=== PATIENT | male | born 2000 | race Caucasian/White ===

== ENCOUNTER 2021-11-21 23:00 | Emergency (ER) | payer OTHER, SELFPAY ==
--- OUTSIDE RECORDS SUMMARY | 2021-11-21 23:02 | XMS REPORT | Continuity of Care Document ---
:2000 Author Organization [facility] t Address [address] [place] [address] Care Team Providers Name Role Phone Pcp, Does Not Have A Primary Care Physician Ritesh PIANO STRINGER Attending Clinician RITESH Attending Clinician Unavailable Doctor Unassigned, Name Attending Clinician Unavailable Payers Payer Name Policy Type Policy Number Effective Date Expiration Date S mode [id number] 2020 Uninsured Testing 00:00:00 00:00:00 & Treat [place] [facility] [id number] 2016 HEALTH 00:00:00 Problems Condition Condition Condition Status Onset Resolution Last Treating Co mments Source Name Details Category Date Date Treatment Clinician Date Ichthyosis Ichthyosis Disease Active U nivers vulgaris vulgaris 2-22 ity of 00:00: [place] 00 [facility] 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 2-22 ity of 00:00: [place] 00 [facility] Migraine Migraine Disease Active Unive rs without without 2-22 ity of aura and aura and 00:00: [place] without without 00 Medical status status Branch migrainosu migrainosu s, not s, not intractabl intractabl e e Allergies, Adverse Reactions, Alerts Allergy Allergy Status Severity Reaction(s) Onset Inactive Treating Comm ents Source Name Type Date Date Clinician NO KNOWN Drug Active Univers ALLERGIE Class ity of S [facility] Social History Social Habit Start Date Stop Date Quantity Comments Source Exposure to Not sure [facility] SARS-CoV-2 (event) Medica l Branch Tobacco use and 2015-07-21 2015-07-21 Never used [facility] exposure 00:00:00 00:00:00 [facility] Branch Sex Assigned At [birth year] [facility] 00:00:00 00:00:00 [facility] Branch Smoking Status Start Date Stop Date Source Never smoker [facility] Medications Ordered Filled Start Stop Current Ordering Indication Dosage Frequency Signature Comments Components Source Medication Medication Date Date Medication? Clinician (SIG) Name Name ibuprofen No [id number] 600mg Un ana (IBU) 09-05 ity of tablet 600 20:15: 20:01 [place] mg 00 :00 [facility] Branch ibuprofen 2021- No [id number] 600mg 600 mg, Univers (IBU) 09-05 Oral, ity of tablet 600 20:15: 20:01 ONCE, 1 Abilio as mg 00 :00 dose, On Medical Mon Branch 09/05/21 at 1515, Routine IBUPROFEN No Take by Uni vers (MOTRIN 09-05 mouth. ity of ORAL) 15:00: 00:00 [place] 31 :00 [facility] Branch IBUPROFEN 2018-0 Yes Take by Univ ers (MOTRIN 06-29 mouth. ity of ORAL) 08:54: [place] 58 [facility] Immunizations Ordered Filled Immunization Date Status Comments Sourc e Immunization Name Name DTAP 2003-08-12 Completed University of 00:00:00 [facility] DTAP 2003-08-12 Completed University of 00:00:00 [facility] MMR 2003-08-07 Completed University of 00:00:00 [facility] Polio (IPV/OPV) 2003-08-07 Completed Universit y of 00:00:00 [facility] MMR 2003-08-07 Completed University of 00:00:00 [facility] Polio (IPV/OPV) 2003-08-07 Completed Universit y of 00:00:00 [facility] Vital Signs Vital Name Observation Time Observation Value Comments Source Systolic blood 2021-09-05 19:51:00 135 mm[Hg] Univer sity of pressure [facility] Diastolic blood 2021-09-05 19:51:00 82 mm[Hg] Unive rsity of pressure [facility] Heart rate 2021-09-05 19:51:00 82 /min Universi ty [place] [facility] Body temperature 2021-09-05 19:51:00 36.72 Lily [facility] [place] Respiratory rate 2021-09-05 19:51:00 16 /min [facility] [place] Body height 2021-09-05 19:51:00 170.2 cm Universi ty [facility] Body weight 2021-09-05 19:51:00 73.483 kg Universi ty [place] [facility] BMI 2021-09-05 19:51:00 25.37 kg/m2 Universi ty [place] [facility] Oxygen saturation in 2021-09-05 19:51:00 98 /min [facility] Arterial blood by [facility] Pulse oximetry Branch Procedures Procedure Date / Time Performed Performing Clinician [facility] e CONSENT/REFUSAL FOR 2021-09-05 19:38:13 Doctor Carmen, No Un [facility] DIAGNOSIS AND Name [facility] TREATMENT Encounters Start End Encounter Admission Attending Care Care Encounter Source Date/Time Date/Time Type Type Clinicians Facility Department ID 2021-09-03 Outpatient [facility] [id number] [place] 06:36:23 [id number] [facility] 2021-09-05 2021-09-05 Urgent [facility] [id number] Univers 14:40:00 15:06:57 Care [facility] [id number] i ty of [place] [id number] Abilio as SAM?BLEA [phone] [place] [facility] [address] MEDICAL OFFICE BUILDING 2021-09-05 2021-09-05 Outpatient R RITESH [facility] [id number] Univers 14:40:00 15:06:57 OSMIN figueroay o f [facility] 2021-09-05 2021-09-05 Outpatient R [facility] [id number] Univers 14:40:00 14:40:00 [id number] ity of [facility] 2021-09-05 2021-09-05 Orders Doctor RICE [id number] Univers 00:00:00 00:00:00 Only Unassigned, FERDINAND [id number] ity of [place] [facility] [id number] Abilio as [phone] [facility] 009 Branch Results This patient has no known results.
[2021-11-22] MEDS ORDERED: METOCLOPRAMIDE 10 MG/2mL INJ ONE (00:20)
[2021-11-22] MEDS ORDERED: NA CHLORIDE 0.9% 50 ML ONE (00:21)
[2021-11-22] MEDS ORDERED: NA CHLORIDE 0.9% 1,000 ML ONE (00:21)
[2021-11-22] MEDS ORDERED: KETOROLAC 30 MG/ML INJ ONE (00:21)
[2021-11-22] MEDS ORDERED: DIPHENHYDRAMINE 50 MG/ML VIAL ONE (00:21)
--- NOTE | 2021-11-22 02:37 | ER ---
Nurse's Notes [facility] Name: Zane Miller Age: 21 yrs Sex: Male : 2000 Arrival Date: 11/21/2021 Time: 23:03 Bed 15 Private MD: Diagnosis: Migraine without aura, not intractable Presentation: 11/21 23:36 Chief complaint: Patient states: he has a severe migraine with photophobia and bb vomiting. Coronavirus screen: At this time, the client does not indicate any symptoms associated with coronavirus-19. Ebola Screen: No symptoms or risks identified at this time. Initial Sepsis Screen: Does the patient meet any 2 criteria? No. Patient's initial sepsis screen is negative. Does the patient have a suspected source of infection? No. Patient's initial sepsis screen is negative. Risk Assessment: Do you want to hurt yourself or someone else? Patient reports no desire to harm self or others. Onset of symptoms was November 21, 2021. 23:36 Method Of Arrival: Ambulatory bb 23:36 Acuity: OBED 3 bb Triage Assessment: 23:37 Headache History: The patient has had previous headaches. General: Appears in no bb apparent distress. uncomfortable, Behavior is cooperative, anxious. Pain: Complains of pain in headache Pain currently is 10 out of 10 on a pain scale. Pain began suddenly, Also complains of photophobia, vomiting. Neuro: Level of Consciousness is awake, alert, obeys commands, Oriented to person, place, time, situation. Cardiovascular: Capillary refill < 3 seconds Patient's skin is warm and dry. Respiratory: Respiratory effort is even, unlabored. GI: Pt is actively vomiting. Derm: Skin is pink, warm \T\ dry. Musculoskeletal: Circulation, motion, and sensation intact. Historical: - Allergies: 23:37 No Known Allergies; bb - Home Meds: 23:37 None [Active]; bb - PMHx: 23:37 Cerebral Palsy; HEARING IMPAIRED; Hemiplegic migraines; bb - PSHx: 23:37 hypospadia; bb - Immunization history:: Moderna x 2. - Social history:: Smoking status: Patient denies any tobacco usage or history of. Screenin:45 Abuse screen: Denies threats or abuse. Nutritional screening: No deficits noted. bb Tuberculosis screening: No symptoms or risk factors identified. Fall Risk None identified. Assessment: 23:45 Reassessment: No changes from previously documented assessment. Patient is alert, bb oriented x 3, equal unlabored respirations, skin warm/dry/pink. see triage assessment. 11/22 01:00 Reassessment: No changes from previously documented assessment. Patient is alert, vc1 oriented x 3, equal unlabored respirations, skin warm/dry/pink. Patient states symptoms have improved. 02:00 Reassessment: Patient and/or family updated on plan of care and expected duration. Pain vc1 level reassessed. Patient is alert, oriented x 3, equal unlabored respirations, skin warm/dry/pink. Patient states feeling better. Patient states symptoms have improved. Vital Signs: 11/21 23:36 BP 122 / 70; Pulse 72; Resp 16 S; Temp 98.3(O); Pulse Ox 99% on R/A; Weight 71.67 kg bb (R); Height 5 ft. 6 in. (167.64 cm) (R); Pain 10/10; 11/22 02:00 BP 120 / 68; Pulse 70; Resp 16; Pulse Ox 100% ; Pain 0/10; vc1 11/21 23:36 Body Mass Index 25.50 (71.67 kg, 167.64 cm) Markle Coma Score: 00:55 Eye Response: spontaneous(4). Verbal Response: oriented(5). Motor Response: obeys sarah commands(6). Total: 15. ED Course: 11/21 23:03 Patient arrived in ED. jj6 23:37 Triage completed. bb 23:37 Arm band placed on Patient placed in an exam room, on a stretcher, on pulse oximetry. bb Family accompanied patient. 23:40 Christos King MD is Attending Physician. sarah 23:45 Patient has correct armband on for positive identification. Bed in low position. Call bb light in reach. Side rails up X 1. Adult w/ patient. 11/22 00:31 Inserted saline lock: 20 gauge in left antecubital area, using aseptic technique. Blood vc1 collected. 00:56 CT Head Brain wo Cont In Process Unspecified. EDKS 02:37 Bobby Smalls MD is Referral Physician. sarah 02:40 No provider procedures requiring assistance completed. IV discontinued, intact, vc1 bleeding controlled, No redness/swelling at site. Pressure dressing applied. 02:43 Dania Pimentel, RN is Primary Nurse. vc1 Administered Medications: 00:30 Drug: NS 0.9% 1000 ml Route: IV; Rate: 1 bolus; Site: left antecubital; vc1 01:30 Follow up: IV Status: Completed infusion; IV Intake: 1000ml vc1 00:30 Drug: Benadryl (diphenhydrAMINE) 50 mg Route: IVP; Site: left antecubital; vc1 01:30 Follow up: Response: No adverse reaction; Pain is decreased vc1 00:30 Drug: Reglan (metoCLOPramide) 10 mg Route: IVP; Site: left antecubital; vc1 01:30 Follow up: Response: No adverse reaction; Pain is decreased vc1 00:30 Drug: Ketorolac 30 mg Route: IVP; Site: left antecubital; vc1 01:30 Follow up: Response: No adverse reaction; Pain is decreased vc1 Medication: 02:40 VIS not applicable for this client. vc1 Intake: 01:30 IV: 1000ml; Total: 1000ml. vc1 Outcome: 02:37 Discharge ordered by MD. smith 02:40 Discharged to home ambulatory, with significant other. vc1 02:40 Condition: improved 02:40 Discharge instructions given to patient, Instructed on discharge instructions, follow up and referral plans. medication usage, Demonstrated understanding of instructions, follow-up care, medications, Prescriptions given X 2. 02:43 Patient left the ED. vc1 Signatures: Dispatcher [employer] EDKS Christos King MD MD cha Ballard, Brenda, Ida Dewey RN jj6 Dania Pimentel RN RN vc1
--- NOTE | 2021-11-22 02:37 | EDPHYS ---
Physician Documentation [facility] Name: Zane Miller Age: 21 yrs Sex: Male : 2000 Arrival Date: 11/21/2021 Time: 23:03 Bed 15 Private MD: ED Physician Christos King HPI: 11/22 00:52 This 21 yrs old Male presents to ER via Ambulatory with complaints of Headache.sarah Historical: - Allergies: 11/21 23:37 No Known Allergies; bb - Home Meds: 23:37 None [Active]; bb - PMHx: 23:37 Cerebral Palsy; HEARING IMPAIRED; Hemiplegic migraines; bb - PSHx: 23:37 hypospadia; bb - Immunization history:: Moderna x 2. - Social history:: Smoking status: Patient denies any tobacco usage or history of. ROS: 11/22 00:54 Constitutional: Negative for fever, chills, and weight loss, Eyes: Negative for injury, sarah pain, redness, and discharge, ENT: Negative for injury, pain, and discharge, Neck: Negative for injury, pain, and swelling, Cardiovascular: Negative for chest pain, palpitations, and edema, Respiratory: Negative for shortness of breath, cough, wheezing, and pleuritic chest pain, Abdomen/GI: Negative for abdominal pain, nausea, vomiting, diarrhea, and constipation, Back: Negative for injury and pain, : Negative for injury, bleeding, discharge, and swelling, MS/Extremity: Negative for injury and deformity, Skin: Negative for injury, rash, and discoloration, Psych: Negative for depression, anxiety, suicide ideation, homicidal ideation, and hallucinations, Allergy/Immunology: Negative for hives, rash, and allergies, Endocrine: Negative for neck swelling, polydipsia, polyuria, polyphagia, and marked weight changes, Hematologic/Lymphatic: Negative for swollen nodes, abnormal bleeding, and unusual bruising. Neuro: Positive for headache. Exam: 00:54 Constitutional: This is a well developed, well nourished patient who is awake, alert, sarah and in no acute distress. Head/Face: Normocephalic, atraumatic. Eyes: Pupils equal round and reactive to light, extra-ocular motions intact. Lids and lashes normal. Conjunctiva and sclera are non-icteric and not injected. Cornea within normal limits. Periorbital areas with no swelling, redness, or edema. ENT: Nares patent. No nasal discharge, no septal abnormalities noted. Tympanic membranes are normal and external auditory canals are clear. Oropharynx with no redness, swelling, or masses, exudates, or evidence of obstruction, uvula midline. Mucous membranes moist. Neck: Trachea midline, no thyromegaly or masses palpated, and no cervical lymphadenopathy. Supple, full range of motion without nuchal rigidity, or vertebral point tenderness. No Meningismus. Chest/axilla: Normal chest wall appearance and motion. Nontender with no deformity. No lesions are appreciated. Cardiovascular: Regular rate and rhythm with a normal S1 and S2. No gallops, murmurs, or rubs. Normal PMI, no JVD. No pulse deficits. Respiratory: Lungs have equal breath sounds bilaterally, clear to auscultation and percussion. No rales, rhonchi or wheezes noted. No increased work of breathing, no retractions or nasal flaring. Abdomen/GI: Soft, non-tender, with normal bowel sounds. No distension or tympany. No guarding or rebound. No evidence of tenderness throughout. Back: No spinal tenderness. No costovertebral tenderness. Full range of motion. Skin: Warm, dry with normal turgor. Normal color with no rashes, no lesions, and no evidence of cellulitis. MS/ Extremity: Pulses equal, no cyanosis. Neurovascular intact. Full, normal range of motion. Neuro: Awake and alert, GCS 15, oriented to person, place, time, and situation. Cranial nerves II-XII grossly intact. Motor strength 5/5 in all extremities. Sensory grossly intact. Cerebellar exam normal. Normal gait. Psych: Awake, alert, with orientation to person, place and time. Behavior, mood, and affect are within normal limits. 00:54 Neck: ROM/movement: is normal, is supple, without pain, no range of motions limitations, no meningismus, no nuchal rigidity, negative Brudzinski's sign, negative Kernig's sign, no acute changes, pain, is not appreciated, limited range of motion, is not appreciated, Meningeal signs: are not present, nuchal rigidity, is not appreciated. Vital Signs: 11/21 23:36 BP 122 / 70; Pulse 72; Resp 16 S; Temp 98.3(O); Pulse Ox 99% on R/A; Weight 71.67 kg bb (R); Height 5 ft. 6 in. (167.64 cm) (R); Pain 10/10; 11/22 02:00 BP 120 / 68; Pulse 70; Resp 16; Pulse Ox 100% ; Pain 0/10; vc1 11/21 23:36 Body Mass Index 25.50 (71.67 kg, 167.64 cm) bb Rodrick Coma Score: 00:55 Eye Response: spontaneous(4). Verbal Response: oriented(5). Motor Response: obeys [facility] commands(6). Total: 15. MDM: 11/21 23:40 Patient medically screened. [facility] 11/22 00:55 Differential diagnosis: cluster headache, hypertensive headache, migraine, tension sarah headache, trigeminal neuralgia, vasomotor headache. Data reviewed: vital signs, nurses notes, lab test result(s), radiologic studies, CT scan. Data interpreted: campus monitor: rate is 72 beats/min, rhythm is regular, Pulse oximetry: on room air is 99 %. Counseling: I had a detailed discussion with the patient and/or guardian regarding: the historical points, exam findings, and any diagnostic results supporting the discharge/admit diagnosis, lab results, radiology results, the need for outpatient follow up, for definitive care, a family practitioner, a neurologist. 11/21 23:43 Order name: CT Head Brain wo Cont [facility] 11/21 23:43 Order name: Oxygen; Complete Time: 00:30 [facility] Administered Medications: 00:30 Drug: NS 0.9% 1000 ml Route: IV; Rate: 1 bolus; Site: left antecubital; vc1 01:30 Follow up: IV Status: Completed infusion; IV Intake: 1000ml vc1 00:30 Drug: Benadryl (diphenhydrAMINE) 50 mg Route: IVP; Site: left antecubital; vc1 01:30 Follow up: Response: No adverse reaction; Pain is decreased vc1 00:30 Drug: Reglan (metoCLOPramide) 10 mg Route: IVP; Site: left antecubital; vc1 01:30 Follow up: Response: No adverse reaction; Pain is decreased vc1 00:30 Drug: Ketorolac 30 mg Route: IVP; Site: left antecubital; vc1 01:30 Follow up: Response: No adverse reaction; Pain is decreased vc1 Disposition Summary: 11/22/21 02:37 Discharge Ordered Location: Home sarah Problem: new sarah Symptoms: have improved sarah Condition: Stable sarah Diagnosis - Migraine without aura, not intractable sarah Followup: sarah - With: Private Physician - When: 2 - 3 days - Reason: Recheck today's complaints, Continuance of care, Re-evaluation by your physician Followup: sarah - With: - When: 2 - 3 days - Reason: Recheck today's complaints, Re-evaluation by your physician Discharge Instructions: - Discharge Summary Sheet sarah - Migraine Headache sarah - Migraine Headache, [id number] sarah Forms: - Medication Reconciliation Form sarah - Thank You Letter sarah - Antibiotic Education sarah - Prescription Opioid Use sarah Prescriptions: - Zofran 4 mg Oral Tablet - take 1 tablet by ORAL route every 12 hours As needed; 20 tablet; Refills: 0, sarah Product Selection Permitted - Fioricet with Codeine [id number] mg Oral capsule - take 1 capsule by ORAL route every 4 hours as needed not to exceed 6 capsules sarah per 24hrs; 15 capsule; Refills: 0, Product Selection Permitted Signatures: Dispatcher [employer] Christos Chow MD MD cha Ballard, Brenda, RN RN Dania Marina RN RN vc1
[2021-11-22 03:01] VITALS: BP 122/70; TEMP 98.3; O2SAT 99
--- NOTE | 2021-11-22 14:36 | RAD REPORT ---
EXAM DESCRIPTION: CT Head/Brain Without Contrast CLINICAL HISTORY: Headache, classic migraine COMPARISON: CT Head/Brain Without Contrast 07/09/2017 images without report TECHNIQUE: Head/brain axial images acquired without contrast. Coronal and sagittal reformats created . Exam performed according to departmental dose-optimization program which includes automated exposur e control, adjustment of mA and/or kV according to patient size, and/or use of iterative reconstructi on technique. FINDINGS: No midline shift, mass effect, intracranial hemorrhage, or hydrocephalus. Few nonspecific round small bilateral cerebral centrum semiovale calcifications. Paranasal sinuses clear. Mastoid air cells clear. No skull fracture or significant skull lesion. IMPRESSION: No CT evidence of acute intracranial abnormality. Electronically signed by: Raad Holcomb MD 11/22/2021 1:28 AM CDT Due to temporary technical issues with the PACS/Fluency reporting system, reports are being signed by the in house radiologists without review as a courtesy to insure prompt reporting. The interpreting radiologist is fully responsible for the content of the report.
== END 2021-11-22 02:43 | disposition home or self-care (01) ==
LOC: ER 23:00
DX: G43.009 Migraine without aura, not intractable, without status migrainosus (principal); G80.9 Cerebral palsy, unspecified
CPT/HCPCS: 70450; 96361; 96374; 96375; 99284; J1200; J2765; J7030

== ENCOUNTER 2022-12-18 15:03 | Emergency (ER) | payer SELFPAY ==
--- OUTSIDE RECORDS SUMMARY | 2022-12-18 15:07 | XMS REPORT | Continuity of Care Document ---
:2000 Author Organization [facility] t Address [address] [facility] [address] [place] [address] Care Team Providers Name Role Phone PCP, PATIENT DOES NOT HAVE A Primary Care Physician UnavailAMI Sherman Attending Clinician Unavailable Ami Zarate PA-C Attending Clinician Unknown, Attending Attending Clinician Unavailable Sofie Pereyra Attending Clinician SOFIE AWAD Attending Clinician Unavailable Doctor Unassigned, [place] Attending Clinician Unavailable Payers Payer Name Policy Type Policy Number Effective Date Expiration Date James coello Covid19 Hrsa E [id number] 2020 2020 Uninsured Testing 00:00:00 00:00:00 & Treat [place] [facility] [id number] 2016 HEALTH 00:00:00 Problems Condition Condition Condition Status Onset Resolution Last Treating Co mments Source Name Details Category Date Date Treatment Clinician Date Ichthyosis Ichthyosis Disease Active U nivers vulgaris vulgaris 2-22 ity of 00:00: [place] 00 Medical Branch 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 2-22 ity of 00:00: [place] 00 Medical Branch Migraine Migraine Disease Active Unive rs without [...] Active Univers ALLERGIE Class ity of S [facility] Social History Social Habit Start Date Stop Date Quantity Comments Source History of Passive smoker University of tobacco use [facility] Exposure to 2022-04-05 2022-04-15 Not sure [facility] SARS-CoV-2 00:00:00 16:22:00 [place] [facility] (event) [place] Tobacco use and 2021-09-05 2021-09-05 Smokeless tobacco Un iversity of exposure 00:00:00 00:00:00 non-user [facility] Sex Assigned At [birth year] Universit y of 00:00:00 00:00:00 [facility] Smoking Status Start Date Stop Date Source Never smoked tobacco [facility] Medications Ordered Filled Start Stop Current Ordering Indication Dosage Frequency Signature Comments Components Source Medication Medication Date Date Medication? Clinician (SIG) Name Name ondansetron 2021-06 Yes [id number] 8mg Take 2 Univers 4 mg 1-05 tablets by ity of disintegrat 00:00: mouth [place] ing tablet 00 every 8 Medica l (eight) Branch hours as needed for Nausea and Vomiting (N/V). ibuprofen 2021- No [id number] 600mg Un ana (IBU) 09-05 ity of tablet 600 20:15: 20:01 [place] mg 00 :00 [facility] ibuprofen 2021- No [id number] 600mg 600 mg, Univers (IBU) 09-05 Oral, ity of tablet 600 20:15: 20:01 ONCE, 1 [place] as mg 00 :00 dose, On Medical Mon Branch 09/05/21 at 1515, Routine IBUPROFEN 2021- No Take by Univ ers (MOTRIN 09-05 mouth. ity of ORAL) 15:00: 00:00 [place] 31 :00 [facility] IBUPROFEN 2017-0 Yes Take by Unive rs (MOTRIN 06-29 mouth. ity of ORAL) 08:54: [place] 58 [facility] Immunizations Ordered Filled Immunization Date Status Comments Sourc e Immunization Name Name DTAP 2003-08-12 Completed University 00:00:00 [facility] DTAP 2003-08-12 Completed University 00:00:00 [facility] MMR 2003-08-07 Completed University of 00:00:00 [place] [facility] Polio (IPV/OPV) 2003-08-07 Completed Universit y of 00:00:00 [place] [facility] Branch MMR 2003-08-07 Completed University of 00:00:00 [place] [facility] Branch Polio (IPV/OPV) 2003-08-07 Completed Universit y of 00:00:00 [facility] Vital Signs Vital Name Observation Time Observation Value Comments Source Systolic blood 2022-04-15 21:23:00 115 mm[Hg] Univer sity of pressure [facility] Diastolic blood 2022-04-15 21:23:00 62 mm[Hg] Unive rsity of pressure [facility] Heart rate 2022-04-15 21:23:00 57 /min Universi ty of [facility] Body temperature 2022-04-15 21:23:00 37.28 Lily Univ ersity of [facility] Respiratory rate 2022-04-15 21:23:00 16 /min Univ ersity of [facility] Body height 2022-04-15 21:23:00 170.2 cm Universi ty of [facility] Body weight 2022-04-15 21:23:00 75.569 kg Universi ty of [facility] BMI 2022-04-15 21:23:00 26.09 kg/m2 Universi ty of [facility] Oxygen saturation in 2022-04-15 21:23:00 99 /min University of Arterial blood by [facility] Pulse oximetry Branch Systolic blood 2021-09-05 19:51:00 135 mm[Hg] Univer sity of pressure [facility] Diastolic blood 2021-09-05 19:51:00 82 mm[Hg] Unive rsity of pressure [facility] Heart rate 2021-09-05 19:51:00 82 /min Universi ty of [facility] Body temperature 2021-09-05 19:51:00 36.72 Lily Univ ersity of [facility] Respiratory rate 2021-09-05 19:51:00 16 /min Univ ersity of [facility] Body height 2021-09-05 19:51:00 170.2 cm Universi ty of [facility] Body weight 2021-09-05 19:51:00 73.483 kg Universi ty of [place] [facility] Branch BMI 2021-09-05 19:51:00 25.37 kg/m2 Universi ty of [facility] Oxygen saturation in 2021-09-05 19:51:00 98 /min University of Arterial blood by [facility] Pulse oximetry Branch Procedures Procedure Date / Time Performed Performing Clinician [facility] CONSENT/REFUSAL FOR 2021-09-05 19:38:13 Doctor Unassigned, [facility] Name Medical Branch TREATMENT Encounters Start End Encounter Admission Attending Care Care Encounter Source Date/Time Date/Time Type Type Clinicians Facility Department ID 2021-09-03 Outpatient [facility] [id number] [place] 06:36:23 [id number] [facility] 2022-04-15 2022-04-15 [facility] [id number] Univers 16:00:00 16:50:26 AMI smith [facility] 2022-04-15 2022-04-15 [facility] [id number] Univers 16:00:00 16:50:26 Care Unknown, [facility] [id number] ity of ABIQUIU [id number] Abilio as SAM?BLEA [id number] [address] MEDICAL OFFICE BUILDING 2021-09-05 2021-09-05 [facility] [id number] Univers 14:40:00 15:06:57 Care [facility] [id number] i ty of ABIQUIU [id number] Abilio as SAM?BLEA [id number] [address] MEDICAL OFFICE BUILDING 2021-09-05 2021-09-05 Outpatient R [facility] [id number] Univers 14:40:00 15:06:57 SOFIE ity o f [facility] 2021-09-05 2021-09-05 Orders Doctor RICE [id number] Univers 00:00:00 00:00:00 Only Unassigned, F[place] [id number] ity of [place] [facility] [id number] Abilio as [id number] [facility] 009 Branch Results This patient has no known results.
[2022-12-18] MEDS ORDERED: dexAMETHasone 10 MG/ML VIAL ONE (16:14)
[2022-12-18] MEDS ORDERED: NA CHLORIDE 0.9% 1,000 ML ONE (16:14)
[2022-12-18] MEDS ORDERED: METOCLOPRAMIDE 10 MG/2mL INJ ONE (16:14)
[2022-12-18] MEDS ORDERED: KETOROLAC 30 MG/ML INJ ONE (16:14)
--- NOTE | 2022-12-18 17:18 | ER ---
Nurse's Notes [facility] Name: Zane Miller Age: 22 yrs Sex: Male : 2000 Arrival Date: 12/18/2022 Time: 15:03 Bed 5 Private MD: Diagnosis: Migraine, unspecified, not intractable, without status migrainosus Presentation: 12/18 15:26 Chief complaint: Patient states: migraine onset today at 1400. Pt states that he has a cm10 history of migraines. Coronavirus screen: Vaccine status: Patient reports receiving the 2nd dose of the covid vaccine. Ebola Screen: Patient denies travel to an Ebola-affected area in the 21 days before illness onset. No symptoms or risks identified at this time. Initial Sepsis Screen: Does the patient meet any 2 criteria? No. Patient's initial sepsis screen is negative. Does the patient have a suspected source of infection? No. Patient's initial sepsis screen is negative. Risk Assessment: Do you want to hurt yourself or someone else? Patient reports no desire to harm self or others. Onset of symptoms was December 18, 2022. 15:26 Method Of Arrival: Ambulatory cm10 15:26 Acuity: OBED 3 cm10 Triage Assessment: 15:30 General: Appears in no apparent distress. comfortable, Behavior is calm, cooperative. cm10 Pain: Complains of pain in head Pain does not radiate. Pain currently is 5 out of 10 on a pain scale. Quality of pain is described as throbbing, Pain began 2 hours ago. Neuro: No deficits noted. Level of Consciousness is awake, alert, Oriented to person, place, time, situation, Reports headache frontal area. Respiratory: No deficits noted. Airway is patent Respiratory effort is even, unlabored, Respiratory pattern is regular, symmetrical. Historical: - Allergies: 15:30 No Known Drug Allergies; cm10 - PMHx: 15:30 Cerebral Palsy; HEARING IMPAIRED; Hemiplegic migraines; cm10 - PSHx: 15:30 hypospadia; cm10 - Immunization history:: Adult Immunizations up to date. - Social history:: Smoking status: Patient denies any tobacco usage or history of. Patient uses street drugs, marijuana. - Family history:: not pertinent. - Hospitalizations: : No recent hospitalization is reported. Screenin:14 [facility] ED Fall Risk Assessment (Adult) History of falling in the last 3 months, aa5 including since admission No falls in past 3 months (0 pts) Confusion or Disorientation No (0 pts) Intoxicated or Sedated No (0 pts) Impaired Gait No (0 pts) Mobility Assist Device Used No (0 pt) Altered Elimination No (0 pt) Score/Fall Risk Level 0 - 2 = Low Risk Oriented to surroundings, Maintained a safe environment, Educated pt \T\ family on fall prevention, incl call for assistance when getting out of bed. Abuse screen: Denies threats or abuse. Nutritional screening: No deficits noted. Tuberculosis screening: No symptoms or risk factors identified. Assessment: 16:00 General: Appears uncomfortable, Behavior is calm, cooperative. Pain: Complains of pain aa5 in left jehovah's witness and right jehovah's witness and forehead Pain currently is 5 out of 10 on a pain scale. Quality of pain is described as aching, Pain began 2 hours ago. Is continuous. Neuro: Level of Consciousness is awake, alert, obeys commands, Oriented to person, place, time, situation. Cardiovascular: Patient's skin is warm and dry. Respiratory: Airway is patent Respiratory effort is even, unlabored, Respiratory pattern is regular, symmetrical. GI: Patient currently denies nausea. : No signs and/or symptoms were reported regarding the genitourinary system. EENT: No signs and/or symptoms were reported regarding the EENT system. Derm: Skin is dry, Skin is normal, Skin temperature is warm. Musculoskeletal: Range of motion: intact in all extremities. 17:58 Neuro: Level of Consciousness is awake, alert, obeys commands, Oriented to person, aa5 place, time, situation. Respiratory: Airway is patent Respiratory effort is even, unlabored, Respiratory pattern is regular, symmetrical. Derm: Skin is dry, Skin is normal, Skin temperature is warm. Vital Signs: 15:26 BP 138 / 79; Pulse 75; Resp 16 S; Temp 98.1; Pulse Ox 100% on R/A; Weight 72.57 kg; cm10 Height 5 ft. 7 in. ; Pain 5/10; 17:50 BP 119 / 68; Pulse 72; Resp 17 S; Pulse Ox 100% on R/A; aa5 15:26 Body Mass Index 25.06 (72.57 kg, 170.18 cm) cm10 15:26 Pain Scale: Adult cm10 Rodrick Coma Score: 17:17 Eye Response: spontaneous(4). Motor Response: obeys commands(6). Verbal Response: rn oriented(5). Total: 15. ED Course: 15:05 Patient arrived in ED. rg4 15:13 Mc Boles MD is Attending Physician. rn 15:30 Triage completed. cm10 15:31 Arm band placed on Patient placed in waiting room. cm10 15:50 Lou Bay, RN is Primary Nurse. aa5 16:00 Patient has correct armband on for positive identification. Bed in low position. Call aa5 light in reach. Side rails up X 1. 16:10 Inserted saline lock: 20 gauge in left antecubital area, using aseptic technique. aa5 17:58 No provider procedures requiring assistance completed. IV discontinued, intact, aa5 bleeding controlled, No redness/swelling at site. Pressure dressing applied. Administered Medications: 16:13 Drug: Decadron - Dexamethasone IVP 10 mg Route: IVP; Site: left antecubital; aa5 16:20 Follow up: Response: No adverse reaction aa5 16:13 Drug: NS 0.9% IV 1000 ml Route: IV; Rate: 1000 ml; Site: left antecubital; aa5 17:58 Follow up: IV Status: Completed infusion; IV Intake: 1000ml aa5 16:13 Drug: metoCLOPramide IVP 10 mg Route: IVP; Site: left antecubital; aa5 16:20 Follow up: Response: No adverse reaction aa5 16:13 Drug: Ketorolac IVP 15 mg Route: IVP; Site: left antecubital; aa5 16:20 Follow up: Response: No adverse reaction aa5 Medication: 16:14 VIS not applicable for this client. aa5 Intake: 17:58 IV: 1000ml; Total: 1000ml. aa5 Outcome: 17:18 Discharge ordered by . rn 17:58 Discharged to home ambulatory, with family. aa5 17:58 Condition: improved 17:58 Discharge instructions given to patient, Instructed on discharge instructions, follow up and referral plans. Demonstrated understanding of instructions, follow-up care. 18:00 Patient left the ED. 1 Signatures: Mc Boles MD MD rn Calderon, Audri, VELIA RN aa5 Delores English rg4 Chance Montejo RN RN 1 Toyin Lehman, RN RN cm10
--- NOTE | 2022-12-18 17:19 | EDPHYS ---
Physician Documentation [facility] Name: Zane Miller Age: 22 yrs Sex: Male : 2000 Arrival Date: 12/18/2022 Time: 15:03 Bed 5 Private MD: ED Physician Mc Boles HPI: 12/18 16:02 This 22 yrs old Male presents to ER via Ambulatory with complaints of Migraine. rn 16:02 The patient complains of pain to the forehead, right jainism and left jainism. The rn patient describes the headache as aching. Onset: The symptoms/episode began/occurred today. Associated signs and symptoms: Pertinent negatives: altered mental status, fever, neck stiffness, rash, vision changes, vision loss, vomiting, weakness, vertigo. Severity of symptoms: At its worst the pain was moderate, in the emergency department the pain is unchanged. The symptoms are alleviated by nothing. the symptoms are aggravated by nothing. The patient has experienced similar episodes in the past. The patient has not recently seen a physician. Pt reports migraine headache, usually hemiplegic migraines, no weakness or numbness currently. No fever. NO neck stiffness. No trauma. No atypical features compared to previous migraines. Reports this is mild compared to previous.. Historical: - Allergies: 15:30 No Known Drug Allergies; cm10 - PMHx: 15:30 Cerebral Palsy; HEARING IMPAIRED; Hemiplegic migraines; cm10 - PSHx: 15:30 hypospadia; cm10 - Immunization history:: Adult Immunizations up to date. - Social history:: Smoking status: Patient denies any tobacco usage or history of. Patient uses street drugs, marijuana. - Family history:: not pertinent. - Hospitalizations: : No recent hospitalization is reported. ROS: 16:02 Constitutional: Negative for fever, chills, and weight loss, Eyes: Negative for injury, rn pain, redness, and discharge, Neck: Negative for injury, pain, and swelling, Cardiovascular: Negative for chest pain, palpitations, and edema, Respiratory: Negative for shortness of breath, cough, wheezing, and pleuritic chest pain, Abdomen/GI: Negative for abdominal pain, nausea, vomiting, diarrhea, and constipation, Back: Negative for injury and pain, MS/Extremity: Negative for injury and deformity, Skin: Negative for injury, rash, and discoloration, Neuro: Negative for weakness, numbness, tingling, and seizure. Exam: 16:02 Constitutional: This is a well developed, well nourished patient who is awake, alert, rn and in no acute distress. Neck: Trachea midline, no masses palpated, and no cervical lymphadenopathy. Supple, full range of motion without nuchal rigidity, or vertebral point tenderness. No Meningismus. Cardiovascular: Regular rate and rhythm. No pulse deficits. MS/ Extremity: Pulses equal, no cyanosis. Neurovascular intact. Full, normal range of motion. Equal circumference. Neuro: Awake and alert, GCS 15, oriented to person, place, time, and situation. Cranial nerves II-XII grossly intact. Motor strength 5/5 in all extremities. Sensory grossly intact. Cerebellar exam normal. Normal gait. Vital Signs: 15:26 BP 138 / 79; Pulse 75; Resp 16 S; Temp 98.1; Pulse Ox 100% on R/A; Weight 72.57 kg; cm10 Height 5 ft. 7 in. ; Pain 5/10; 17:50 BP 119 / 68; Pulse 72; Resp 17 S; Pulse Ox 100% on R/A; aa5 15:26 Body Mass Index 25.06 (72.57 kg, 170.18 cm) cm10 15:26 Pain Scale: Adult cm10 Warwick Coma Score: 17:17 Eye Response: spontaneous(4). Motor Response: obeys commands(6). Verbal Response: rn oriented(5). Total: 15. MDM: 15:13 Patient medically screened. rn 17:17 Differential diagnosis: migraine, tension headache, vasomotor headache. Data reviewed: rn vital signs, nurses notes, old medical records, and as a result, I will discharge patient. Counseling: I had a detailed discussion with the patient and/or guardian regarding: the historical points, exam findings, and any diagnostic results supporting the discharge/admit diagnosis, the need for outpatient follow up, to return to the emergency department if symptoms worsen or persist or if there are any questions or concerns that arise at home. Response to treatment: the patient's symptoms have markedly improved after treatment, and as a result, I will discharge patient. Special discussion: I discussed with the patient/guardian in detail that at this point there is no indication for admission to the hospital. It is understood, however, that if the symptoms persist or worsen the patient needs to return immediately for re-evaluation. 12/18 15:30 Order name: IV Start; Complete Time: 16:03 rn Administered Medications: 16:13 Drug: Decadron - Dexamethasone IVP 10 mg Route: IVP; Site: left antecubital; aa5 16:20 Follow up: Response: No adverse reaction aa5 16:13 Drug: NS 0.9% IV 1000 ml Route: IV; Rate: 1000 ml; Site: left antecubital; aa5 17:58 Follow up: IV Status: Completed infusion; IV Intake: 1000ml aa5 16:13 Drug: metoCLOPramide IVP 10 mg Route: IVP; Site: left antecubital; aa5 16:20 Follow up: Response: No adverse reaction aa5 16:13 Drug: Ketorolac IVP 15 mg Route: IVP; Site: left antecubital; aa5 16:20 Follow up: Response: No adverse reaction aa5 Disposition Summary: 12/18/22 17:18 Discharge Ordered Location: Home rn Problem: new rn Symptoms: have improved rn Condition: Stable rn Diagnosis - Migraine, unspecified, not intractable, without status migrainosus rn Followup: rn - With: Private Physician - When: As needed - Reason: Recheck today's complaints, Re-evaluation by your physician Discharge Instructions: - Discharge Summary Sheet rn - Migraine Headache rn Forms: - Medication Reconciliation Form rn - Thank You Letter rn - 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
[2022-12-18 18:48] VITALS: BP 138/79; TEMP 98.1; O2SAT 100
== END 2022-12-18 18:00 | disposition home or self-care (01) ==
LOC: ER 15:03
DX: G43.009 Migraine without aura, not intractable, without status migrainosus (principal)
CPT/HCPCS: 96361; 96374; 96375; 99284; J1100; J2765; J7030